=== PATIENT | female | born 1980 | race Caucasian/White ===

== ENCOUNTER 2018-08-24 00:36 | Emergency (ER) | payer SELFPAY ==
[2018-08-24 01:22] LABS: Absolute Lymphocytes (CBC) 3.5 K/uL (0.7-4.9); Absolute Monocytes 0.6 K/uL (0.1-1.3); Absolute Neutrophil 5.2 K/uL (1.8-8.0); Basophils % 0.4 % (0-1.3); Eosinophils % 0.3 % (0-4.4); Hematocrit 39.9 % (36.0-45.0); Lymphocytes % 37.3 % (15.3-44.8); MPV 7.4 fL (7.6-11.3); Monocytes % 6.8 % (3.3-12.3); RBC Red Blood Cell Count 4.02 M/uL (3.86-4.86)
[2018-08-24] MEDS ORDERED: NA CHLORIDE 0.9% 1,000 ML ONE (01:25)
[2018-08-24 01:27] LABS: Protime INR 0.94
[2018-08-24 01:28] LABS: ALT/SGPT 23 U/L (12-78); AST/SGOT 21 U/L (15-37); Albumin 3.7 g/dL (3.4-5.0); Alkaline Phosphatase 41 U/L (45-117); BUN Blood Urea Nitrogen 10 mg/dL (7-18); Bicarbonate 21 mmol/L (21-32); Bilirubin Direct < 0.1 mg/dL (0-0.2); Bilirubin Total 0.2 mg/dL (0.2-1.0); Glucose Level 115 mg/dL (74-106); Potassium 3.5 mmol/L (3.5-5.1); Protein, Total 6.9 g/dL (6.4-8.2); Sodium Level 146 mmol/L (136-145)
[2018-08-24 02:09] LABS: Barbiturates NEGATIVE (NEGATIVE); Benzodiazepines POSITIVE (NEGATIVE); Cocaine NEGATIVE (NEGATIVE); METHAMPHETAM POSITIVE (NEGATIVE); Methadone NEGATIVE (NEGATIVE); Opiates NEGATIVE (NEGATIVE); Phencyclidine NEGATIVE (NEGATIVE); THC Cannibis NEGATIVE (NEGATIVE)
[2018-08-24] MEDS ORDERED: ACETAMINOPHEN 500 MG TAB ONE (03:30)
[2018-08-24 04:59] LABS: Urine Blood 1+ (NEG); Urine Glucose NEGATIVE (NEG); Urine Protein NEGATIVE (NEG); Urine pH 5.5 (5.0-7.0)
--- NOTE | 2018-08-24 07:40 | EKG ---
Test Date: 2018-08-24 Test Time: 01:03:15 Parts Data Writer: [email or web address] MEASUREMENT RESULTS: Intervals: Rate: 116 IA: 130 QRSD: 76 QT: 336 QTc: 467 Mcloud: P: 71 IA: 130 QRS: 81 T: 66 INTERPRETIVE STATEMENTS: Sinus tachycardia Cannot rule out Anterior infarct, age undetermined Abnormal ECG No previous ECG available for comparison Electronically Signed On 08-24-18 07:38:56 ASSURANCE SENIOR MANAGER by Mason Pedro
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
== END 2018-08-24 11:30 | disposition home or self-care (01) ==
LOC: ER 00:36
DX: O9A.211 Injury, poisoning and certain other consequences of external causes complicating pregnancy, first trimester (principal); T51.0X1A Toxic effect of ethanol, accidental (unintentional), initial encounter; O99.341 Other mental disorders complicating pregnancy, first trimester; F41.8 Other specified anxiety disorders; Z3A.01 Less than 8 weeks gestation of pregnancy; Y92.89 Other specified places as the place of occurrence of the external cause
CPT/HCPCS: 36415; 80048; 80076; 80307; 80320; 80329; 81003; 81025; 85025; 85610; 85730; 93005; 99283; J7030

== ENCOUNTER 2018-10-29 13:52 | Emergency (ER) | payer SELFPAY ==
--- NOTE | 2018-10-29 14:44 | ER ---
Nurse's Notes [facility] Name: Sulma Bueno Age: 38 yrs Sex: Female : 1980 Arrival Date: 10/29/2018 Time: 13:53 Bed 17 Private MD: None, None Diagnosis: Puncture wound without foreign body, left foot Presentation: 10/29 14:23 Presenting complaint: Stepped on nail with left foot last night. Transition of care: hb patient was not received from another setting of care. Onset of symptoms was October 28, 2018. Risk Assessment: Do you want to hurt yourself or someone else? Patient reports no desire to harm self or others. Care prior to arrival: None. 14:23 Method Of Arrival: Ambulatory 14:23 Acuity: RONALD 4 14:35 Initial Sepsis Screen: Does the patient meet any 2 criteria? No. Patient's initial tw2 sepsis screen is negative. Does the patient have a suspected source of infection? No. Patient's initial sepsis screen is negative. Triage Assessment: 14:30 General: Appears in no apparent distress. Behavior is calm, cooperative, appropriate tw2 for age. Pain: Complains of pain in left foot. Musculoskeletal: No signs and/or symptoms reported regarding the musculoskeletal system. Injury Description: Puncture sustained to left foot. 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 - Social history:: Smoking status: Patient/guardian denies using tobacco. - Ebola Screening: : No symptoms or risks identified at this time. Screenin:30 Abuse screen: Denies threats or abuse. Nutritional screening: No deficits noted. tw2 Tuberculosis screening: No symptoms or risk factors identified. Fall Risk None identified. Assessment: 14:35 Injury Description: Puncture sustained to plantar aspect of left fifth toe is puncture tw2 wound was sustained 12-24 hours ago. 14:37 General: Appears in no apparent distress. well groomed, Behavior is calm, cooperative, tw2 appropriate for age. Pain: Complains of pain in plantar aspect of left fifth toe. Neuro: Level of Consciousness is awake, alert, obeys commands, Oriented to person, place, time, situation. Cardiovascular: Patient's skin is warm and dry. Respiratory: Airway is patent Respiratory effort is even, unlabored, Respiratory pattern is regular, symmetrical. Musculoskeletal: Circulation, motion, and sensation intact. Range of motion: intact in all extremities. 15:03 Reassessment: Patient appears in no apparent distress at this time. Patient and/or tw2 family updated on plan of care and expected duration. Pain level reassessed. Patient is alert, oriented x 3, equal unlabored respirations, skin warm/dry/pink. Vital Signs: 14:23 BP 121 / 87; Pulse 81; Resp 16; Temp 97.8(TE); Pulse Ox 99% on R/A; Pain 3/10; hb ED Course: 13:53 Patient arrived in ED. mr 13:54 None, None is Private Physician. mr 14:04 Patient's name was called from ER lobby. No response. hb 14:23 Triage completed. hb 14:24 Arm band placed on. hb 14:26 Maday Mcdonald, KODY is Primary Nurse. tw2 14:26 Fady Burk PA is PHCP. jr8 14:26 Justin Michel MD is Attending Physician. jr8 14:26 Bed in low position. Call light in reach. tw2 14:38 No provider procedures requiring assistance completed. Patient did not have IV access tw2 during this emergency room visit. Administered Medications: 14:43 Drug: Tetanus-Diphtheria Toxoid Adult 0.5 ml {Spark Plug Assembler: inFreeDA. Exp: tw2 08/21/2020. Lot #: [id number]. } Route: IM; Site: right deltoid; 15:03 Follow up: Response: No adverse reaction tw2 14:44 Drug: Doxycycline 100 mg Route: PO; tw2 15:03 Follow up: Response: No adverse reaction tw2 Outcome: 14:43 Discharge ordered by . jr8 15:03 Discharged to home ambulatory. tw2 15:03 Condition: stable 15:03 Discharge instructions given to patient, Instructed on discharge instructions, follow up and referral plans. medication usage, wound care, Demonstrated understanding of instructions, follow-up care, medications, wound care, Prescriptions given X 1. 15:04 Patient left the ED. tw2 Signatures: Giselle Franklin Josh, PA PA jr8 Reva Reynoso, RN RN Maday Mcdonald RN RN tw2
--- NOTE | 2018-10-29 14:44 | EDPHYS ---
Physician Documentation [facility] Name: Sulma Bueno Age: 38 yrs Sex: Female : 1980 Arrival Date: 10/29/2018 Time: 13:53 Bed 17 Private MD: None, None ED Physician Justin Michel HPI: 10/29 14:40 This 38 yrs old Female presents to ER via Ambulatory with complaints of Foot jr8 Injury. 14:40 The patient presents with an injury, pain. The complaints affect the plantar aspect of jr8 left fifth toe. Context: The problem was sustained outdoors, resulted from puncture wound. Onset: The symptoms/episode began/occurred acutely, yesterday, last night. Modifying factors: The symptoms are alleviated by nothing. the symptoms are aggravated by weight bearing. Associated signs and symptoms: The patient has no apparent associated signs or symptoms. Severity of symptoms: At their worst the symptoms were mild, in the emergency department the symptoms are unchanged. The patient has not experienced similar symptoms in the past. The patient has not recently seen a physician. Stated that she was stepping sideways and had nail go through her shoe and into her 5th toe left side. Washed it immediately and cleaned with Betadine last night. Was told to come to ED today for further evaluation . 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 - Social history:: Smoking status: Patient/guardian denies using tobacco. - Ebola Screening: : No symptoms or risks identified at this time. ROS: 14:40 Eyes: Negative for injury, pain, redness, and discharge, ENT: Negative for injury, jr8 pain, and discharge, Neck: Negative for injury, pain, and swelling, Cardiovascular: Negative for chest pain, palpitations, and edema, Respiratory: Negative for shortness of breath, cough, wheezing, and pleuritic chest pain, Abdomen/GI: Negative for abdominal pain, nausea, vomiting, diarrhea, and constipation, Back: Negative for injury and pain, Skin: Negative for injury, rash, and discoloration, Neuro: Negative for headache, weakness, numbness, tingling, and seizure. 14:40 MS/extremity: Positive for pain, puncture, tenderness, of the plantar aspect of left fifth toe. Exam: 14:40 Constitutional: This is a well developed, well nourished patient who is awake, alert, jr8 and in no acute distress. ENT: Nares patent. No nasal discharge, no septal abnormalities noted. Tympanic membranes are normal and external auditory canals are clear. Oropharynx with no redness, swelling, or masses, exudates, or evidence of obstruction, uvula midline. Mucous membranes moist. Cardiovascular: Regular rate and rhythm with a normal S1 and S2. No gallops, murmurs, or rubs. Normal PMI, no JVD. No pulse deficits. Respiratory: Lungs have equal breath sounds bilaterally, clear to auscultation and percussion. No rales, rhonchi or wheezes noted. No increased work of breathing, no retractions or nasal flaring. Abdomen/GI: Soft, non-tender, with normal bowel sounds. No distension or tympany. No guarding or rebound. No evidence of tenderness throughout. Back: No spinal tenderness. No costovertebral tenderness. Full range of motion. Skin: Warm, dry with normal turgor. Normal color with no rashes, no lesions, and no evidence of cellulitis. Neuro: Awake and alert, GCS 15, oriented to person, place, time, and situation. Cranial nerves II-XII grossly intact. Motor strength 5/5 in all extremities. Sensory grossly intact. Cerebellar exam normal. Normal gait. 14:40 Musculoskeletal/extremity: Extremities: grossly normal except: noted in the plantar aspect of left fifth toe: Small 1.5 cm laceration noted to bottom of toe. No bleeding. No surrounding discharge or erythema/cellulitis. clean in appearance. Mild tenderness to palpation noted , ROM: intact in all extremities, Circulation is intact in all extremities. Sensation intact. Vital Signs: 14:23 BP 121 / 87; Pulse 81; Resp 16; Temp 97.8(TE); Pulse Ox 99% on R/A; Pain 3/10; hb MDM: 14:28 Patient medically screened. [facility] 14:40 Data reviewed: vital signs, nurses notes, and as a result, I will discharge patient. jr8 Data interpreted: Pulse oximetry: on room air is 99 %. Interpretation: normal. Counseling: I had a detailed discussion with the patient and/or guardian regarding: the historical points, exam findings, and any diagnostic results supporting the discharge/admit diagnosis, the need for outpatient follow up, a family practitioner, to return to the emergency department if symptoms worsen or persist or if there are any questions or concerns that arise at home. Administered Medications: 14:43 Drug: Tetanus-Diphtheria Toxoid Adult 0.5 ml {[employer]: [employer]. Exp: tw08/21/2020. Lot #: [id number]. } Route: IM; Site: right deltoid; 15:03 Follow up: Response: No adverse reaction tw2 14:44 Drug: Doxycycline 100 mg Route: PO; tw2 15:03 Follow up: Response: No adverse reaction tw2 Disposition: 15:20 Co-signature as Attending Physician, Justin Michel MD I agree with the assessment and dave plan of care. Disposition: 10/29/18 14:43 Discharged to Home. Impression: Puncture wound without foreign body, left foot. - Condition is Stable. - Discharge Instructions: Puncture Wound. - Prescriptions for Doxycycline Monohydrate 100 mg Oral Tablet - take 1 tablet by ORAL route every 12 hours for 10 days; 20 tablet. - Medication Reconciliation Form, Thank You Letter, Antibiotic Education, Prescription Opioid Use, Work release form form. - Follow up: Private Physician; When: 48 Hours; Reason: Wound Recheck, Recheck today's complaints, Continuance of care, Re-evaluation by your physician. - Problem is new. - Symptoms have improved. Signatures: Justin Michel MD MD cha Roszak, Josh, PA PA jr8 Reva Reynoso RN RN Maday Mcdonald RN RN tw2 Corrections: (The following items were deleted from the chart) 15:04 14:43 10/29/2018 14:43 Discharged to Home. Impression: Puncture wound without foreign tw2 body, left foot. Condition is Stable. Forms are Work release form, Medication Reconciliation Form, Thank You Letter, Antibiotic Education, Prescription Opioid Use. Follow up: Private Physician; When: 48 Hours; Reason: Wound Recheck, Recheck today's complaints, Continuance of care, Re-evaluation by your physician. Problem is new. Symptoms have improved. jr8
[2018-10-29] MEDS ORDERED: DOXYCYCLINE 100 MG CAP PO ONE (14:51)
[2018-10-29] MEDS ORDERED: TETANUS & DIPHTHERIA TOX,ADULT 0.5 ML VIAL ONE (14:51)
== END 2018-10-29 15:04 | disposition home or self-care (01) ==
LOC: ER 13:52
DX: S91.332A Puncture wound without foreign body, left foot, initial encounter (principal); F90.9 Attention-deficit hyperactivity disorder, unspecified type; F41.8 Other specified anxiety disorders; W45.0XXA Nail entering through skin, initial encounter; Y93.89 Activity, other specified; Y92.9 Unspecified place or not applicable; Z23 Encounter for immunization
CPT/HCPCS: 90471; 90714; 99283